=== PATIENT | male | born 1985 | race African-American/Black ===

== ENCOUNTER 2020-10-30 17:06 | Emergency (ER) | payer OTHER ==
[2020-10-30 17:10] VITALS: BP 166/79; PULSE 70; TEMP 97; BMI 23.3
== END 2020-10-30 18:15 | disposition home or self-care (01) ==
LOC: JERFT 17:06
DX: R21 Rash and other nonspecific skin eruption (principal)
CPT/HCPCS: 99282-25

== ENCOUNTER 2023-07-29 15:58 | Inpatient (IN) | payer OTHER ==
[2023-07-29] MEDS ORDERED: METOCLOPRAMIDE HCL INJECTION 10 MG/2 ML VIAL IVPB ONE (16:36)
[2023-07-29] MEDS ORDERED: ACETAMINOPHEN 1000 MG/100 ML BAG IVPB ONE (16:36)
[2023-07-29] MEDS ORDERED: SODIUM CHLORIDE 0.9% 500 ML INFUS.BAG IV ONE (16:36)
[2023-07-29] MEDS ORDERED: METOCLOPRAMIDE HCL INJECTION 10 MG/2 ML VIAL ONE (16:54)
[2023-07-29] MEDS ORDERED: ACETAMINOPHEN INJECTION 100 ML IVPB ONE ×2 (16:54→16:56)
[2023-07-29 17:48] LABS: EOS % 1.5 % (0-4.5); HEMATOCRIT 38.5 % (35.4-49); HEMOGLOBIN 12.9 GM/dL (11.7-16.9); LYMPH % 28.2 % (8-40); MCHC 33.5 g/dl (32.0-35.9); MEAN CELL VOLUME 80.7 fl (80-96); MEAN PLT VOLUME 7.4 fl (7.5-11.1); MONO % 16.6 % (3.8-10.2); NEUT % 52.7 % (42.8-82.8); PLATELET COUNT 220 10^3/uL (134-434); RBC 4.77 M/mm3 (4.00-5.60); RDW 13.6 % (11.9-15.9); WHITE BLOOD COUNT 3.4 K/mm3 (4.0-10.0)
[2023-07-29 17:56] LABS: INR 1.09 (0.83-1.09); PROTHROMBIN TIME (PATIENT) 12.6 SEC (9.7-13.0)
[2023-07-29 17:59] LABS: ACTIVATED PTT 37.1 SECONDS (25.2-36.5)
[2023-07-29 18:16] LABS: CHLORIDE 105 mmol/L (98-107); POTASSIUM 4.1 mmol/L (3.5-5.1); SODIUM 141 mmol/L (136-145)
[2023-07-29 18:17] LABS: CALCIUM 8.6 mg/dL (8.5-10.1)
[2023-07-29 18:18] LABS: ALBUMIN 3.7 g/dl (3.4-5.0); ANION GAP 8 MMOL/L (8-16); CO2 28 mmol/L (21-32)
[2023-07-29 18:19] LABS: BLOOD UREA NITROGEN 20.5 mg/dL (7-18); GLUCOSE,RANDOM 91 mg/dL (74-106)
[2023-07-29 18:21] LABS: CREATININE 1.2 mg/dL (0.55-1.3); SGOT/AST 19 U/L (15-37); SGPT/ALT 21 U/L (13-61)
[2023-07-29 18:22] LABS: CHOLESTEROL 200 mg/dL (50-200)
[2023-07-29 18:23] LABS: LDL CHOLESTEROL (ONLY SJRH) 115 mg/dL (5-100); TOT PROT 7.4 g/dl (6.4-8.2)
[2023-07-29 18:24] LABS: BILIRUBIN,TOTAL 0.5 mg/dL (0.2-1)
[2023-07-29 18:25] LABS: ALK PHOS 67 U/L (45-117); HDL CHOLESTEROL 74 mg/dL (40-60)
[2023-07-29] MEDS ORDERED: ASPIRIN 325 MG TABLET PO ONE (22:16)
[2023-07-29 22:26] LABS: PHENCYCLIDINE,URINE NEGATIVE (NEGATIVE)
[2023-07-29 22:30] LABS: COCAINE, UR NEGATIVE (NEGATIVE); METHADONE, UR NEGATIVE (NEGATIVE); OPIATES, URI NEGATIVE (NEGATIVE); URINE AMPHETAMINES NEGATIVE (NEGATIVE); URINE BARBITURATES NEGATIVE (NEGATIVE); URINE BENZODIAZEPINES NEGATIVE (NEGATIVE)
[2023-07-29 22:32] LABS: PH,URINE 5.5 (5.0-8.0); URINE APPEARANCE CLEAR; URINE BILIRUBIN NEGATIVE (NEGATIVE); URINE COLOR YELLOW; URINE GLUCOSE (UA) NEGATIVE (NEGATIVE); URINE KETONE NEGATIVE (NEGATIVE); URINE LEUK ESTERASE NEGATIVE (NEGATIVE); URINE NITRITE NEGATIVE (NEGATIVE); URINE PROTEIN NEGATIVE (NEGATIVE); URINE UROBILINOGEN 0.2 mg/dL (0.2-1.0)
[2023-07-29] MEDS ORDERED: ASPIRIN 325 MG TABLET ONE (22:47)
[2023-07-30] MEDS: SODIUM CHLORIDE 1,000 ML IV SCH (04:37)
[2023-07-30 07:18] LABS: BASO % 0.8 % (0-2.0); EOS % 1.7 % (0-4.5); HEMATOCRIT 37.7 % (35.4-49); HEMOGLOBIN 12.2 GM/dL (11.7-16.9); LYMPH % 23.5 % (8-40); MCH 26.7 pg (25.7-33.7); MCHC 32.5 g/dl (32.0-35.9); MEAN CELL VOLUME 82.2 fl (80-96); MEAN PLT VOLUME 7.8 fl (7.5-11.1); MONO % 14.6 % (3.8-10.2); NEUT % 59.4 % (42.8-82.8); PLATELET COUNT 198 10^3/uL (134-434); RBC 4.59 M/mm3 (4.00-5.60); RDW 13.5 % (11.9-15.9); WHITE BLOOD COUNT 3.5 K/mm3 (4.0-10.0)
[2023-07-30 07:34] LABS: POTASSIUM 4.3 mmol/L (3.5-5.1)
[2023-07-30 07:35] LABS: CALCIUM 8.5 mg/dL (8.5-10.1)
[2023-07-30 07:37] LABS: ALBUMIN 3.4 g/dl (3.4-5.0); BLOOD UREA NITROGEN 17.2 mg/dL (7-18)
[2023-07-30 07:39] LABS: CREATININE 1.1 mg/dL (0.55-1.3)
[2023-07-30 07:41] LABS: TOT PROT 6.7 g/dl (6.4-8.2)
[2023-07-30 07:42] LABS: BILIRUBIN,TOTAL 0.6 mg/dL (0.2-1)
[2023-07-30] MEDS: ENOXAPARIN NA (PORCINE) 40 MG/0.4 ML DISP.SYRIN SQ SCH (10:34)
[2023-07-30] MEDS: ASPIRIN 81 MG CHEWABLE TABLETS PO SCH (10:34)
[2023-07-30] MEDS: BACLOFEN 10 MG TABLET (FP) PO SCH ×2 (10:34→22:28)
[2023-07-30] MEDS: valACYclovir HCL 500 MG TABLET (FP) PO SCH (10:34)
[2023-07-30] MEDS ORDERED: GABAPENTIN 100 MG CAPSULE PO SCH (22:00)
[2023-07-30] MEDS: GABAPENTIN 100 MG CAPSULE PO SCH (22:28)
[2023-07-31] MEDS: SODIUM CHLORIDE 1,000 ML IV SCH (03:27)
[2023-07-31 03:34] VITALS: BMI 24.2
[2023-07-31] MEDS: ASPIRIN 81 MG CHEWABLE TABLETS PO SCH (09:43)
[2023-07-31] MEDS: BACLOFEN 10 MG TABLET (FP) PO SCH ×2 (09:43→21:19)
[2023-07-31] MEDS: ENOXAPARIN NA (PORCINE) 40 MG/0.4 ML DISP.SYRIN SQ SCH (09:44)
[2023-07-31] MEDS: valACYclovir HCL 500 MG TABLET (FP) PO SCH (11:51)
[2023-07-31] MEDS ORDERED: FAMOTIDINE 10 MG TABLET PO ONE (20:47)
[2023-07-31] MEDS: GABAPENTIN 100 MG CAPSULE PO SCH (21:19)
[2023-08-01 08:32] LABS: POTASSIUM 4.2 mmol/L (3.5-5.1)
[2023-08-01 08:33] LABS: CALCIUM 9.2 mg/dL (8.5-10.1)
[2023-08-01 08:37] LABS: CREATININE 1.2 mg/dL (0.55-1.3); HEMATOCRIT 40.4 % (35.4-49); HEMOGLOBIN 13.5 GM/dL (11.7-16.9); MCH 27.3 pg (25.7-33.7); MCHC 33.4 g/dl (32.0-35.9); MEAN CELL VOLUME 81.7 fl (80-96); MEAN PLT VOLUME 7.9 fl (7.5-11.1); PLATELET COUNT 228 10^3/uL (134-434); RBC 4.95 M/mm3 (4.00-5.60); RDW 13.8 % (11.9-15.9); WHITE BLOOD COUNT 2.9 K/mm3 (4.0-10.0)
[2023-08-01] MEDS ORDERED: ACETAMINOPHEN 325 MG TABLET (FP) PO PRN (09:17)
[2023-08-01] MEDS: BACLOFEN 10 MG TABLET (FP) PO SCH ×2 (09:50→09:58)
[2023-08-01] MEDS: ASPIRIN 81 MG CHEWABLE TABLETS PO SCH (09:53)
[2023-08-01] MEDS: ENOXAPARIN NA (PORCINE) 40 MG/0.4 ML DISP.SYRIN SQ SCH (09:53)
[2023-08-01] MEDS: valACYclovir HCL 500 MG TABLET (FP) PO SCH (09:54)
[2023-08-01 10:06] VITALS: BP 144/98; PULSE 74; RESP 18; TEMP 99
== END 2023-08-01 13:41 | disposition home or self-care (01) | DRG 48 ==
LOC: JER 15:58 → JERBED 19:22 → J4S 07-30 21:31
PROVIDERS: ADMIT Internal Medicine; ATTEND Internal Medicine
DX: M54.12 Radiculopathy, cervical region (principal); M25.512 Pain in left shoulder; M54.2 Cervicalgia; R20.0 Anesthesia of skin; D72.819 Decreased white blood cell count, unspecified; D57.3 Sickle-cell trait; M51.26 Other intervertebral disc displacement, lumbar region; M54.50 Low back pain, unspecified
CPT/HCPCS: 0241U-QW; 36415; 70450-TC; 70551-TC; 71275-TC; 72141-TC; 73221-TC-LT; 80048; 80053; 80061; 80307; 81003; 82550; 82553; 82962; 83036; 83735; 83880; 84484; 85025; 85027; 85610; 85730; 86850; 86900; 86901; 93005; 93010; 93306-TC; 93880-TC; 99285-25; J0475; Q9967

== ENCOUNTER 2024-09-04 00:54 | Emergency (ER) | payer OTHER ==
[2024-09-04 01:10] VITALS: BP 154/83; PULSE 92; RESP 18; TEMP 98.8; BMI 23.6
[2024-09-04] MEDS ORDERED: diphenhydrAMINE HCL 25 MG CAPSULE (FP) PO ONE (03:43)
[2024-09-04] MEDS: diphenhydrAMINE HCL 25 MG CAPSULE (FP) PO ONE (03:46)
[2024-09-04 04:20] LABS: INR 1.05 (0.83-1.09); PROTHROMBIN TIME (PATIENT) 11.9 SEC (9.7-13.0)
[2024-09-04 04:21] LABS: BASO % 1.1 % (0-2.0); EOS % 1.7 % (0-4.5); HEMATOCRIT 38.1 % (35.4-49); HEMOGLOBIN 12.9 GM/dL (11.7-16.9); LYMPH % 35.8 % (8-40); MCH 27.4 pg (25.7-33.7); MCHC 33.8 g/dl (32.0-35.9); MEAN CELL VOLUME 81.1 fl (80-96); MEAN PLT VOLUME 7.4 fl (7.5-11.1); MONO % 14.2 % (3.8-10.2); NEUT % 47.2 % (42.8-82.8); PLATELET COUNT 196 10^3/uL (134-434); RDW 13.7 % (11.9-15.9); WHITE BLOOD COUNT 3.5 K/mm3 (4.0-10.0)
[2024-09-04 04:23] LABS: ACTIVATED PTT 37.8 SECONDS (25.2-36.5)
[2024-09-04 05:30] LABS: POTASSIUM 3.9 mmol/L (3.5-5.1)
[2024-09-04 05:32] LABS: ALBUMIN 3.7 g/dl (3.4-5.0); BLOOD UREA NITROGEN 20.8 mg/dL (7-18); CALCIUM 9.3 mg/dL (8.5-10.1)
[2024-09-04 05:36] LABS: CREATININE 1.2 mg/dL (0.55-1.3)
[2024-09-04 05:37] LABS: BILIRUBIN,TOTAL 0.3 mg/dL (0.2-1); TOT PROT 7.1 g/dl (6.4-8.2)
== END 2024-09-04 06:06 | disposition home or self-care (01) ==
LOC: JER 00:54
DX: K14.8 Other diseases of tongue (principal)
CPT/HCPCS: 36415; 80053; 85025; 85610; 85730; 99283-25